=== PATIENT | female | born 1990 | race Caucasian/White ===

== ENCOUNTER 2021-02-09 21:36 | Emergency (ER) | payer SELFPAY ==
[2021-02-09 21:46] VITALS: BP 138/89; PULSE 89; TEMP 98.3; BMI 26.0
[2021-02-09] MEDS ORDERED: ACETAMINOPHEN 325 MG TABLET (FP) PO ONE (22:44)
[2021-02-09] MEDS ORDERED: ACETAMINOPHEN 325 MG TABLET (FP) ONE (22:46)
[2021-02-09 23:02] LABS: BASO % 0.5 % (0-2.0); EOS % 0.6 % (0-4.5); HEMATOCRIT 35.6 % (32.4-45.2); LYMPH % 14.9 % (8-40); MCH 29.2 pg (25.7-33.7); MCHC 33.8 g/dl (32.0-36.0); MEAN CELL VOLUME 86.5 fl (80-96); MEAN PLT VOLUME 7.8 fl (7.5-11.1); MONO % 5.2 % (3.8-10.2); NEUT % 78.8 % (42.8-82.8); PLATELET COUNT 327 10^3/uL (134-434); RBC 4.11 M/mm3 (3.60-5.2); RDW 14.4 % (11.6-15.6); WHITE BLOOD COUNT 11.5 K/mm3 (4.0-10.0)
[2021-02-09 23:20] LABS: CHLORIDE 108 mmol/L (98-107); SODIUM 140 mmol/L (136-145)
[2021-02-09 23:22] LABS: CALCIUM 8.9 mg/dL (8.5-10.1)
[2021-02-09 23:23] LABS: ALBUMIN 3.1 g/dl (3.4-5.0); ANION GAP 7 MMOL/L (8-16); BLOOD UREA NITROGEN 9.8 mg/dL (7-18); CO2 25 mmol/L (21-32); GLUCOSE,RANDOM 98 mg/dL (74-106)
[2021-02-09 23:26] LABS: CREATININE 0.7 mg/dL (0.55-1.3); SGOT/AST 13 U/L (15-37); SGPT/ALT 14 U/L (13-61)
[2021-02-09 23:28] LABS: BILIRUBIN,TOTAL 0.2 mg/dL (0.2-1); TOT PROT 6.9 g/dl (6.4-8.2)
[2021-02-09 23:29] LABS: ALK PHOS 66 U/L (45-117)
== END 2021-02-10 00:21 | disposition home or self-care (01) ==
LOC: JER 21:36
DX: R07.9 Chest pain, unspecified (principal)
CPT/HCPCS: 36415; 71046-TC-FY; 80053; 84484; 85025; 93005; 93010; 99284-25

== ENCOUNTER 2023-01-11 02:25 | Inpatient (IN) | payer OTHER ==
[2023-01-11] MEDS ORDERED: ELECTROLYTE-148 SOLN 500 ML IV ONE ×2 (14:40→15:40)
[2023-01-11 15:39] LABS: BASO % 0.3 % (0-2.0); EOS % 0.6 % (0-4.5); HEMATOCRIT 30.3 % (32.4-45.2); HEMOGLOBIN 9.7 GM/dL (10.7-15.3); LYMPH % 15.1 % (8-40); MCH 24.7 pg (25.7-33.7); MCHC 31.9 g/dl (32.0-36.0); MEAN CELL VOLUME 77.5 fl (80-96); PLATELET COUNT 355 10^3/uL (134-434); RBC 3.91 M/mm3 (3.60-5.2); RDW 15.8 % (11.6-15.6); WHITE BLOOD COUNT 13.1 K/mm3 (4.0-10.0)
[2023-01-11 15:50] LABS: ACTIVATED PTT 27.2 SECONDS (25.2-36.5); INR 0.9 (0.83-1.09); PROTHROMBIN TIME (PATIENT) 10.5 SEC (9.7-13.0)
[2023-01-11 15:54] VITALS: BMI 27.8
[2023-01-11 15:55] LABS: POTASSIUM 3.8 mmol/L (3.5-5.1)
[2023-01-11 15:57] LABS: CALCIUM 8.1 mg/dL (8.5-10.1)
[2023-01-11 16:00] LABS: CREATININE 0.6 mg/dL (0.55-1.3)
[2023-01-11] MEDS ORDERED: BUTORPHANOL TARTRATE 1 MG/ML VIAL ONE (16:11)
[2023-01-11] MEDS ORDERED: PROMETHAZINE HCL 25 MG/1 ML VIAL ONE (16:11)
[2023-01-11] MEDS: PROMETHAZINE HCL 25 MG/1 ML VIAL IVPUSH ONE ×2 (16:20→17:13)
[2023-01-11] MEDS ORDERED: PROMETHAZINE HCL 25 MG/1 ML VIAL IVPB ONE (16:46)
[2023-01-11] MEDS ORDERED: BUTORPHANOL TARTRATE 1 MG/ML VIAL IVPB ONE (16:46)
[2023-01-11] MEDS ORDERED: ELECTROLYTE-148 SOLN 1,000 ML IV SCH (17:00)
[2023-01-11] MEDS ORDERED: OXYTOCIN 20 UNITS in 0.9% NS 20 UNIT/1,000 ML INFUS.BAG IV ONE (18:11)
[2023-01-11] MEDS ORDERED: oxyCODONE HCL 5 MG TABLET PO PRN (18:44)
[2023-01-11] MEDS ORDERED: WITCH HAZEL 50% (TUCKS) 40 PAD/JAR PAD TP PRN (18:44)
[2023-01-11] MEDS ORDERED: BENZOCAINE 28 GM HEMORRHOIDAL OINTMENT TP PRN (18:44)
[2023-01-11] MEDS ORDERED: BENZOCAINE 20% 57 GM BOTTLE TP PRN (18:44)
[2023-01-11] MEDS ORDERED: ACETAMINOPHEN 325 MG TABLET (FP) PO PRN (18:44)
[2023-01-11] MEDS ORDERED: BISACODYL 10 MG SUPP.RECT RC PRN (18:44)
[2023-01-11] MEDS ORDERED: METHYLERGONOVINE MALEATE 0.2 MG/1 ML AMP IM PRN (18:44)
[2023-01-11] MEDS: IBUPROFEN 600 MG TABLET (FP) PO PRN (18:45)
[2023-01-11] MEDS ORDERED: OXYTOCIN 20 UNITS in 0.9% NS 20 UNIT/1,000 ML INFUS.BAG IV SCH (18:45)
[2023-01-11] MEDS ORDERED: IBUPROFEN 600 MG TABLET (FP) PO ONE (18:47)
[2023-01-11 23:40] LABS: COCAINE, UR NEGATIVE (NEGATIVE); METHADONE, UR NEGATIVE (NEGATIVE); PHENCYCLIDINE,URINE NEGATIVE (NEGATIVE); URINE BENZODIAZEPINES NEGATIVE (NEGATIVE)
[2023-01-11 23:41] LABS: OPIATES, URI NEGATIVE (NEGATIVE); URINE AMPHETAMINES NEGATIVE (NEGATIVE); URINE BARBITURATES NEGATIVE (NEGATIVE)
[2023-01-12 06:46] LABS: BASO % 0.2 % (0-2.0); EOS % 0.5 % (0-4.5); HEMATOCRIT 25.6 % (32.4-45.2); HEMOGLOBIN 8.2 GM/dL (10.7-15.3); MCH 25.1 pg (25.7-33.7); MEAN CELL VOLUME 78.4 fl (80-96); MEAN PLT VOLUME 8.2 fl (7.5-11.1); MONO % 5.4 % (3.8-10.2); NEUT % 74.9 % (42.8-82.8); PLATELET COUNT 313 10^3/uL (134-434); RBC 3.26 M/mm3 (3.60-5.2); RDW 15.6 % (11.6-15.6); WHITE BLOOD COUNT 13.2 K/mm3 (4.0-10.0)
[2023-01-12] MEDS: IBUPROFEN 600 MG TABLET (FP) PO PRN ×3 (08:05→21:32)
[2023-01-12] MEDS: FERROUS SO4 325 MG TABLET (FP) PO SCH ×3 (08:05→17:07)
[2023-01-12] MEDS: PRENATAL VITAMINS W/ FOLIC ACID TABLET (FP) PO SCH (09:12)
[2023-01-12] MEDS ORDERED: SENNOSIDES/DOCUSATE COMBO (SENNA PLUS) TABLET (UD) PO PRN (22:00)
[2023-01-13 08:46] VITALS: BP 116/67; PULSE 72; RESP 20; TEMP 97.9
[2023-01-13] MEDS: FERROUS SO4 325 MG TABLET (FP) PO SCH (09:38)
[2023-01-13] MEDS: IBUPROFEN 600 MG TABLET (FP) PO PRN (09:38)
[2023-01-13] MEDS: PRENATAL VITAMINS W/ FOLIC ACID TABLET (FP) PO SCH (09:38)
== END 2023-01-13 13:40 | disposition home or self-care (01) | DRG 560 ==
LOC: UNDOADMIN 02:25 → JLDR 02:25 → J3W 20:01
PROVIDERS: ADMIT Obstetrics & Gynecology; ATTEND Obstetrics & Gynecology
PROC: 10E0XZZ Delivery of Products of Conception, External Approach (ICD-10-PCS; principal; 2023-01-11)
DX: O80 Encounter for full-term uncomplicated delivery (principal); Z3A.38 38 weeks gestation of pregnancy; Z37.0 Single live birth
CPT/HCPCS: 36415; 80048; 80307; 85025; 85610; 85730; 86780; 86850; 86900; 86901; 87340

== ENCOUNTER 2023-03-11 04:14 | Day surgery (SDC) | payer OTHER ==
[2023-03-05 21:00] VITALS: BMI 29.7
[2023-03-11] MEDS ORDERED: BUPIVACAINE HCL/PF 0.25% (2.5MG/ML) 10 ML VIAL ONE (11:57)
[2023-03-11] MEDS ORDERED: LIDOCAINE HCL 2% 100 MG/5 ML DISP.SYRIN ONE (12:32)
[2023-03-11] MEDS ORDERED: ceFAZolin SODIUM 1 GM VIAL ONE (12:32)
[2023-03-11] MEDS ORDERED: PROPOFOL 40 ML ONE (12:32)
[2023-03-11] MEDS ORDERED: MIDAZOLAM HCL 2 MG/2 ML SINGLE DOSE VIAL ONE (12:32)
[2023-03-11] MEDS ORDERED: ROCURONIUM BROMIDE 50 MG/5 ML SYRINGE ONE (12:32)
[2023-03-11] MEDS ORDERED: DEXAMETHASONE SOD PHOSPHATE 4 MG/1 ML VIAL ONE (12:32)
[2023-03-11] MEDS ORDERED: SUCCINYLCHOLINE CHLORIDE 200 MG/10 ML SYRINGE ONE (12:33)
[2023-03-11] MEDS ORDERED: oxyCODONE HCL 5 MG TABLET PO PRN (13:08)
[2023-03-11] MEDS ORDERED: ONDANSETRON 4 MG/2 ML VIAL IVPUSH PRN (13:08)
[2023-03-11] MEDS ORDERED: LACTATED RINGERS SOLUTION 1,000 ML IV SCH (13:15)
[2023-03-11] MEDS ORDERED: HYDROmorphone HCl 2 MG/ML VIAL ONE (13:31)
[2023-03-11] MEDS ORDERED: NEOSTIGMINE METHYLSULFATE 0.5 MG/1 ML - 10 ML MDV ONE (13:34)
[2023-03-11] MEDS ORDERED: ACETAMINOPHEN INJECTION 100 ML IVPB ONE (13:35)
[2023-03-11] MEDS ORDERED: KETOROLAC TROMETHAMINE 30 MG/1 ML VIAL ONE (13:35)
[2023-03-11] MEDS ORDERED: GLYCOPYRROLATE 0.2 MG/1 ML VIAL ONE (13:35)
[2023-03-11] MEDS ORDERED: BUPIVACAINE HCL/PF 0.25% (2.5MG/ML) 10 ML VIAL IJ ONE (13:35)
[2023-03-11] MEDS ORDERED: ONDANSETRON 4 MG/2 ML VIAL ONE ×2 (13:35→17:09)
[2023-03-11 16:35] VITALS: RESP 18
[2023-03-11 18:14] VITALS: BP 110/61; PULSE 63; TEMP 97.7
== END 2023-03-11 19:15 | disposition home or self-care (01) ==
LOC: JASU-SURG 04:14
PROVIDERS: ATTEND Obstetrics & Gynecology
PROC: 0UB73ZZ Excision of Bilateral Fallopian Tubes, Percutaneous Approach (ICD-10-PCS; principal; 2023-03-11 13:00)
DX: Z30.2 Encounter for sterilization (principal)
CPT/HCPCS: 81025; 88302-TC; 94760